=== PATIENT | female | born 1960 | race Caucasian/White ===

== ENCOUNTER 2017-11-02 22:23 | Inpatient (IN) | payer OTHER ==
[~2017-11-02] VITALS: Ht 160 cm; Wt 109.4 kg
[2017-11-03 01:04] LABS: BASOPHIL % 0.5 % (0-2); PLATELET COUNT 238 x10^3mcL (130-400); RED CELL DISTRIBUTION WIDTH 14.2 % (11.5-14.5)
[2017-11-03 01:12] LABS: CALCIUM 9.5 mg/dL (8.5-10.1); CARBON DIOXIDE 27.6 mmol/L (21-32); CHLORIDE SERUM 99 mmol/L (98-107); GFR1 > 60 mL/min; GLUCOSE SERUM 124 mg/dL (74-106); POTASSIUM SERUM 3.8 mmol/L (3.5-5.1); SODIUM SERUM 136 mmol/L (136-145)
[2017-11-03 01:18] LABS: ALBUMIN 3.9 g/dL (3.4-5.0); ALKALINE PHOSPHATASE 72 U/L (46-116); ALT/SGPT 28 U/L (14-59); AST/SGOT 17 U/L (15-37); BILIRUBIN TOTAL 0.34 mg/dL (0.20-1.00); LIPASE 212 IU/L (73-393); TOTAL PROTEIN, SERUM 7.6 g/dL (6.4-8.2)
[2017-11-03 02:03] LABS: microscopic required? NO
[2017-11-03 02:32] LABS: UA SPECIFIC GRAVITY 1.025 (1.005-1.035); urine erythrocyte NEGATIVE (NEGATIVE)
[2017-11-03] MEDS ORDERED: ATORVASTATIN CA40 M1 PO (03:12)
[2017-11-03] MEDS ORDERED: ZESTRIL5 MG PO (03:13)
[2017-11-03] MEDS ORDERED: K10 PO (03:13)
[2017-11-03] MEDS ORDERED: FLOVENT DI100 MCG/A1 INH (03:13)
[2017-11-03] MEDS ORDERED: FUROSEMIDE40 MG PO (03:13)
[2017-11-03] MEDS ORDERED: PANTOPRAZOLE SO40 M1 PO (03:14)
[2017-11-03] MEDS ORDERED: MONTELUKAST SOD10 M1 PO (03:14)
[2017-11-03] MEDS ORDERED: ZOLOFT100 MG PO (03:14)
[2017-11-03] MEDS ORDERED: PRAVACHOL20 MG PO (03:14)
[2017-11-03 03:41] LABS: MAGNESIUM 1.9 mg/dL (1.8-2.4); PHOSPHOROUS 4.1 mg/dL (2.5-4.9)
[2017-11-03 03:50] LABS: FREE T4 0.93 ng/dL (0.76-1.46); FREE THYROXINE INDEX 2.1 ug/dL (1.4-4.5); T3 TOTAL 1.41 ng/mL; T4(THYROXINE) 6.5 ug/dL (4.7-13.3)
[2017-11-03 03:58] LABS: CHOLESTEROL/HDL RATIO 4.7
[2017-11-03 04:13] LABS: AMPHETAMINE QUAL UR NONE DETECTED (See below)
[2017-11-03 04:20] VITALS: BP 98/53
[2017-11-03 04:45] VITALS: BP 98/53
[2017-11-03 11:15] VITALS: BP 99/70
[2017-11-03 11:40] VITALS: BP 124/72
[2017-11-03 18:16] VITALS: BP 116/68
[2017-11-03 20:35] VITALS: BP 102/54
[2017-11-04 05:38] VITALS: BP 96/55
[2017-11-04 07:20] LABS: PLATELET COUNT 222 x10^3mcL (130-400); RED CELL DISTRIBUTION WIDTH 14.3 % (11.5-14.5)
[2017-11-04 07:37] LABS: CALCIUM 9.2 mg/dL (8.5-10.1); CARBON DIOXIDE 26.5 mmol/L (21-32); CREATININE SERUM 1.1 mg/dL (0.6-1.0); PHOSPHOROUS 4.2 mg/dL (2.5-4.9); POTASSIUM SERUM 4.2 mmol/L (3.5-5.1)
[2017-11-04 08:18] VITALS: BP 128/68
[2017-11-04 10:44] LABS: BAND NEUTROPHIL 5 % (0-10); BASOPHIL 0 % (0-2); MONOCYTE 6 % (0-7); PLATELET MORPHOLOGY PLATELETS NORMAL; SEGMENTED NEUTROPHILS 78 % (37-75)
[2017-11-04 12:38] VITALS: BP 105/60
[2017-11-04 17:11] VITALS: BP 111/54
[2017-11-04 20:34] VITALS: BP 108/58
[2017-11-05 05:06] VITALS: BP 108/63
[2017-11-05 06:38] LABS: BASOPHIL % 0.2 % (0-2); PLATELET COUNT 192 x10^3mcL (130-400); RED CELL DISTRIBUTION WIDTH 14.2 % (11.5-14.5)
[2017-11-05 06:59] LABS: CALCIUM 8.2 mg/dL (8.5-10.1); CARBON DIOXIDE 29.4 mmol/L (21-32); CHLORIDE SERUM 102 mmol/L (98-107); GFR1 > 60 mL/min; GLUCOSE SERUM 113 mg/dL (74-106); POTASSIUM SERUM 4.1 mmol/L (3.5-5.1); SODIUM SERUM 138 mmol/L (136-145)
[2017-11-05 09:17] VITALS: BP 116/60
[2017-11-05 13:33] VITALS: BP 111/53
[2017-11-05] MEDS ORDERED: FLA500 PO (13:49)
[2017-11-05] MEDS ORDERED: LEVAQUIN750 MG PO (13:50)
[2017-11-05] MEDS ORDERED: NORCO1 TA2 PO (13:51)
[2017-11-05 16:00] VITALS: BP 111/53
== END 2017-11-05 16:48 | disposition home or self-care (01) | DRG 233 ==
LOC: ED 22:23 → DU 11-03 02:51
PROVIDERS: Emergency Medicine; Family Medicine; Surgery
PROC: 0DTJ4ZZ Resection of Appendix, Percutaneous Endoscopic Approach (ICD-10-PCS; principal; 2017-11-03 08:30)
DX: K35.2 Acute appendicitis with generalized peritonitis (principal); E11.65 Type 2 diabetes mellitus with hyperglycemia; I10 Essential (primary) hypertension; J45.909 Unspecified asthma, uncomplicated; E78.1 Pure hyperglyceridemia; E66.01 Morbid (severe) obesity due to excess calories; F32.9 Major depressive disorder, single episode, unspecified; E78.00 Pure hypercholesterolemia, unspecified; F17.210 Nicotine dependence, cigarettes, uncomplicated; Z68.41 Body mass index [BMI] 40.0-44.9, adult; Z90.49 Acquired absence of other specified parts of digestive tract; Z98.51 Tubal ligation status; Z88.6 Allergy status to analgesic agent
CPT/HCPCS: 83880; 84439; 94150; J1170; J1885; J2250; J2270; J2405; J2543; J2704; J2710; J3010; J3490; J7030; J7040; J7120; J7620; Q0092

== ENCOUNTER 2018-04-22 23:34 | Inpatient (IN) | payer OTHER ==
[~2018-04-22] VITALS: Ht 157.5 cm; Wt 107.3 kg
[~2018-04-22 23:34] MED LIST: ATORVASTATIN CA40 M1 PO; FLA500 PO; FLOVENT DI100 MCG/A1 INH; FUROSEMIDE40 MG PO; K10 PO; LEVAQUIN750 MG PO; MONTELUKAST SOD10 M1 PO; NORCO1 TA2 PO; PANTOPRAZOLE SO40 M1 PO; PRAVACHOL20 MG PO; ZESTRIL5 MG PO; ZOLOFT100 MG PO
--- NOTE | 2018-04-23 00:48 | NUR ---
DR VACA AT BEDSIDE FOR MSE.
--- NOTE | 2018-04-23 00:50 | NUR ---
REC'D A 57/F IN RM 5 WITH C/O PROGRESSIVELY WORSE SOB X 3 DAYS. HX OF CHRONIC ASTHMA. PT DENIES FEVER, COUGH. PT AAOX4, CLEAR SPEECH, RESP E/U, SALAS EXPIRATORY WHEEZE, ON CM.
--- NOTE | 2018-04-23 01:03 | NUR ---
BREATHING TX IN PROGRESS AT BEDSIDE.
--- NOTE | 2018-04-23 01:05 | NUR ---
PRODUCTIVE WHITE PHELGM NOTED DURING BREATHING TX.
--- NOTE | 2018-04-23 01:24 | NUR ---
SPOKE WITH DR VACA RE 2ND EKG ORDER. PER DR MCCLENDON, ONLY ONE EKG IS NEEDED AND IT HAS ALREADY BEEN COMPLETED.
--- NOTE | 2018-04-23 01:24 | NUR ---
REPORT REC'D FROM GREGORIO KNOX FOR ONGOING CARE OF THE PATIENT.
[2018-04-23 01:25] LABS: BASOPHIL % 0.6 % (0-2); PLATELET COUNT 224 x10^3mcL (130-400)
[2018-04-23 01:26] LABS: RED CELL DISTRIBUTION WIDTH 15.1 % (11.5-14.5)
[2018-04-23 01:36] LABS: CALCIUM 8.2 mg/dL (8.5-10.1); CARBON DIOXIDE 25.7 mmol/L (21-32); CREATININE SERUM 1.1 mg/dL (0.6-1.0); POTASSIUM SERUM 3.7 mmol/L (3.5-5.1)
[2018-04-23 01:40] LABS: ALBUMIN 3.5 g/dL (3.4-5.0); BILIRUBIN TOTAL 0.26 mg/dL (0.20-1.00); TOTAL PROTEIN, SERUM 7.2 g/dL (6.4-8.2)
--- NOTE | 2018-04-23 01:55 | NUR ---
PT REPORT RECIEVED TO ASSUME PT CARE. PT RESTING IN A POSITION OF COMFORT, AOX4, RESP EVEN AND UNLABORED, NO ACUTE DISTRESS NOTED AT THIS TIME.
--- NOTE | 2018-04-23 02:12 | NUR ---
RESP THERAPY AT BEDSIDE.
--- NOTE | 2018-04-23 03:18 | NUR ---
PT TRANSFERRED TO [address] BY [facility] BY MYSELF AND CHRISTOPH EMT. PT ON VESSEL SPECIALIST FOR TRANSPORT. PT AOX4, RESP EVEN AND UNLABORED, NO ACUTE DISTRESS NOTED AT THIS TIME. PT AMBULATED FROM [facility] TO BED WITH STEADY GAIT. CHEVY PERKINS ACCEPTED PT AT BEDSIDE HANDOFF.
[2018-04-23 03:58] LABS: MAGNESIUM 1.9 mg/dL (1.8-2.4)
[2018-04-23 04:05] LABS: CHOLESTEROL/HDL RATIO 6.5; T3 TOTAL 1.3 ng/mL
[2018-04-23 04:17] VITALS: BP 127/97
[2018-04-23 04:20] LABS: FREE T4 0.65 ng/dL (0.76-1.46); FREE THYROXINE INDEX 2.1 ug/dL (1.4-4.5); T4(THYROXINE) 6.8 ug/dL (4.7-13.3)
--- NOTE | 2018-04-23 05:14 | NUR ---
PT'S BEDSIDE BLOOD SUGAR, 190 THIS MORNING. PT REFUSED INSULIN SLIDING SCALE COVERAGE STATING SHE IS NO LONGER DIABETIC, JUST PRE DIABETIC. PT ALSO UNERSTANDS THAT HER SUGAR IS HIGH DUE TO STEROID (SOLU MEDROL) RECEIVED IN ER. DR. MARCANO MADE AWARE. PT DENIES ANY PAIN OR DISCOMFORT AT THIS TIME. DENIES SOB OR DYSPNEA. COMFORT AND SAFETY MEASURES MAINTAINED. ALL NEEDS ASSESSED AND ATTENDED TO. CALL LIGHT WITHIN REACH. WILL ENDORSE CARE TO DAY SHIFT NURSE
[2018-04-23 06:14] VITALS: BP 153/79
--- NOTE | 2018-04-23 07:50 | NUR ---
RECIEVED PT FROM CARPENTER REFRIGERATOR NURSE. PT SITTING UP AT BEDSIDE LEANING OVER BEDSIDE TABLE. A/OX4. TELE #30. NSR, HR 91. DENIES ANY CHEST PAIN. PULSES PALP. SLIGHT EDEMA NOTED TO BILAT LE. RESPIRATIONS EQUAL AND LABORED ON RA. PT C/O SOB THAT IMPROVES WITH BREATHING TREATMENTS. ACTIVE BS. DENIES N/V. AMBULATORY WITH BRP. SKIN W/D/I. DENIES ANY PAIN AT THIS TIME. IV SALINE LOCKED TO RT AC. NO SWELLING OR REDNESS NOTED. CALL LIGHT IN REACH. BED IN LOWEST POSITION. WILL CONTINUE TO MONITOR.
--- NOTE | 2018-04-23 08:40 | NUR ---
ENDORSED CARE TO EMAD RN.
[2018-04-23 08:41] VITALS: BP 138/75
--- NOTE | 2018-04-23 09:16 | NUR ---
MEDICATED PER EMAR. PT AWAKE, ALERT, RESPIRATIONS EVEN AND UNLABORED, NO S/S OF DISTRESS NOTED, PATIENT REPORTS SLIGHT SOB. RT CURRENTLY GIVING TREATMENT. IV SITE CDI AND PATENT. BED IN LOWEST POSITION, CALL LIGHT WITHIN REACH, 2 RAILS UP. SAFETY PRECAUTIONS IN PLACE.
--- NOTE | 2018-04-23 11:49 | NUR ---
PT AWAKE, ALERT, CURRENTLY SITTING IN BED, RESPIRATIONS EVEN AND UNLABORED, NO S/S OF DISTRESS NOTED. MEDICATED PER EMAR FOR ELEVATED BLOOD SUGAR AND EDUCATED ON S/S OF HYPOGLYCEMIA WELL NEED TO EAT LUNCH, PATIENT VERBALIZES UNDERSTANDING. FAMILY AT BEDSIDE. SAFETY PRECAUTIONS IN PLACE.
[2018-04-23 12:58] VITALS: BP 150/75
--- NOTE | 2018-04-23 14:29 | NUR ---
PT CURRENTLY SITTING IN BED WATCHING TV, RESPIRATIONS EVEN AND UNLABORED, NO S/S OF DISTRESS NOTED. SAFETY PRECAUTIONS IN PLACE.
[2018-04-23 15:44] VITALS: BP 133/62
--- NOTE | 2018-04-23 16:01 | NUR ---
PT STATES IV FEELS TENDER. IV SITE CDI AND PATENT WITH NO S/S OF INFILTRATION, REDNESS, EDEMA, OR DRAINAGE AND FLUSHES WITHOUT DIFFICULTY WITH 10ML OF NS. OFFERED OPTION OF STARTING IV TO DIFFERENT SITE, PATIENT CURRENTLY REFUSING. PT AWAKE, ALERT, RESPIRATIONS EVEN AND UNLABORED, NO S/S OF DISTRESS NOTED. SAFETY PRECAUTIONS IN PLACE.
--- NOTE | 2018-04-23 19:01 | NUR ---
ENDORSED CARE TO COMPUTER ASSISTANT NURSE, ALL QUESTIONS AND CONCERNS WERE ADDRESSED. PT AWAKE, ALERT, RESPIRATIONS EVEN AND UNLABORED, NO S/S OF DISTRESS NOTED. SAFETY PRECAUTIONS IN PLACE.
--- NOTE | 2018-04-23 19:20 | NUR ---
RECEIVED PT LAYING IN BED, NO ACUTE DISTRESS NOTED. DENIES PAIN OR DISCOMFORT, BREATHING ON RA, EVEN AND UNLABORED, DENIES SOB OR DYSPNEA, O2 SAT 98, MILD EXPIRATORY WHEEZING NOTED, RT PROTOCOL IN PLACE. AA/OX4, ABLE TO MAKE NEEDS KNOWN. NSR TO TELE #30, NO CP. PULSES PRESENT AND EQUAL THROUGHOUT, NO EDEMA NOTED. ABD ROUND AND SOFT WITH ACTIVE BOWEL SOUNDS, DENIES N/V/D. FREELY VOIDS URINE. AMBULATORY AND ABLE TO REPOSITION SELF IN BED. IV TO RAC IN PLACE, DRY, PATENT, INTACT, S/L AT THIS TIME, NO PAIN, REDNESS, OR SWELLING NOTED WHEN FLUSHED WITH NS. COMFORT AND SAFETY MEASURES IN PLACE. ALL NEEDS ASSESSED AND ATTENDED TO. CALL LIGHT WITHIN REACH. WILL CONTINUE TO MONITOR
[2018-04-23 20:48] VITALS: BP 149/74
--- NOTE | 2018-04-23 21:05 | NUR ---
PT REQUESTING TO SHOWER AT THIS TIME. OK PER DOCTOR'S ORDERS. IV SITE WRAPPED, TELE REMOVED. GAIT STRONG AND STEADY. NO DISTRESS NOTED. WILL CONTINUE TO MONITOR
--- NOTE | 2018-04-23 22:05 | NUR ---
PT OUT OF THE SHOWER AND BACK TO BED WITHOUT INCIDENT. NEW IV TO LFA STARTED BY GREGORIO JARA, DRY, PATENT, INTACT WITH GOOD BLOOD RETURN, FLUSHING WELL. PLACED BACK ON TELE. NO ACUTE DISTRESS. CALL LIGHT WITHIN REACH. WILL CONTINUE TO MONITOR
--- NOTE | 2018-04-24 00:49 | NUR ---
PT REQUESTED TO HAVE BLOOD SUGAR CHECKED PRIOR TO GIVING SCHEDULED DOSE OF SOLUMEDROL IVP, BLOOD SUGAR 268. NO ACUTE DISTRESS NOTED, CALL LIGHT WITHIN REACH. WILL CONTINUE TO MONITOR
[2018-04-24 04:56] VITALS: BP 105/56
--- NOTE | 2018-04-24 05:09 | NUR ---
NO SIGNIFICANT CHANGES TO REPORT, PT COMPLIED WITH NURSING CARE THROUGHOUT THE SHIFT WITH NO ACUTE EVENTS OVER NIGHT. PT LAYING IN BED AT THIS TIME, WATCHING TV, BREATHING EVEN AND UNLABORED, NO ACUTE DISTRESS NOTED. COMFORT AND SAFETY MEASURES MAINTAINED. ALL NEEDS ASSESSED AND ATTENDED TO. CALL LIGHT WITHIN REACH. WILL ENDORSE CARE TO DAY SHIFT NURSE
[2018-04-24 06:31] LABS: PLATELET COUNT 239 x10^3mcL (130-400)
[2018-04-24 06:43] LABS: BASOPHIL % 0 % (0-2); RED CELL DISTRIBUTION WIDTH 14.9 % (11.5-14.5)
[2018-04-24 07:14] LABS: CALCIUM 8.7 mg/dL (8.5-10.1); CARBON DIOXIDE 22.5 mmol/L (21-32); CREATININE SERUM 1.1 mg/dL (0.6-1.0); PHOSPHOROUS 2.9 mg/dL (2.5-4.9); POTASSIUM SERUM 3.7 mmol/L (3.5-5.1)
--- NOTE | 2018-04-24 08:00 | NUR ---
RECEIVED PATIENT ALERT AND ORIENTED TIMES FOUR. REQUESTED BLOOD SUGAR AND DID PER PATIENT REQUEST. NOT SURPRISED THAT IS ELEVATED THE PATIENT HAS BEEN ON SOLUMEDROL. SHE JUST WANTED TO SEE. SHE ALSO ASKED FOR INSULIN. ADVISED THAT THERE IS COVERAGE ONLY EVERY SIX HOURS AND WILL NOT BE GIVING AT THIS TIME. PATIENT AHS DIMINISHED BREATHS SOUNDS AND SOME EXPIRATORY WHEEZING IS HEARD TO BOTH UPPER LOBES OF THE LUNGS. PATIENT HAS A DISTENDED BUT SOFT ABDOMEN AND BOWEL SOUNDS ACTIVE. PATIENT HAS EDEMA TO THE LOWER EXTREMITIES OF 1 PLUS AND PATIENT IS AMBUALTORY. VITALS AT THIS TIME ARE AT 98.3, 91, 20, 105/56, 98% ON ROOM AIR. PATIENT HAS LOW BP AND HELD THE LISINOPRIL INDICATED. PATIENT WAS GIVEN THE LASIX ORDERED. PATIENT AHS NOTED BLOOD SUGAR THIS AM AT 233A ND COVERAGE WAS GIVEN. NOTED WBC IS AT 17.5. DENIES PAIN AT THIS TIME AND DENIES ANY ACUTE SOB. WILL CONTINUE TO MONITOR INDICATED.
[2018-04-24 09:13] VITALS: BP 107/59
--- NOTE | 2018-04-24 12:29 | NUR ---
PATIENT SITTING UP IN BED AND BLOOD SUGAR AT THIS TIME AT 249 AND WILL GIVE INSULIN ORDERED. PATIENT DENIES ANY ACUTE DISTRESS AT THIS TIME. WILL CONTINUE TO MONITOR. 7
[2018-04-24 14:15] VITALS: BP 141/60
--- NOTE | 2018-04-24 16:25 | NUR ---
PATIENT HAS NOT HAD ANY COMPLAINTS OF PAIN AND TOLERATED DIET AND FLUIDS. SHE HAS HAD ELEVATION ON HER GLUCOSE AND NOTED DIABETIC WELL ON SOLUMEDROL AT THIS TIME. NO ACUTE RESPIRATORY DISTRESS AT THIS TIME.
[2018-04-24 17:29] VITALS: BP 160/68
--- NOTE | 2018-04-24 19:49 | NUR ---
PT RECIEVED AAO REG RESP NO SOB,PT R/A SAT 97%,V/S STABLE,KEPT CLEAN AND DRY TO TOUCH,HL TO RAC THE SITE PATENT AND INTACT,PT ON TELE MONITOR AND IN NSR NO ECTOPY OR CHEST PAIN AT THIS TIME,KEPT CLEAN AND DRY TO TOUCH AND CALL LIGHT EASY REACHED AND WILL CONTINUE TO MONITOR.
[2018-04-24 21:50] LABS: microscopic required? NO
[2018-04-24 22:03] LABS: UA SPECIFIC GRAVITY 1.015 (1.005-1.035); urine erythrocyte NEGATIVE (NEGATIVE)
[2018-04-24 22:13] VITALS: BP 131/76
[2018-04-25 06:13] VITALS: BP 127/70
--- NOTE | 2018-04-25 06:31 | NUR ---
PT HAD A RESTING NIGHT NO CHANGFE AT THIS TIME WILL CONTINUE TO MONITOR.
[2018-04-25 07:07] LABS: PLATELET COUNT 242 x10^3mcL (130-400)
[2018-04-25 07:30] LABS: CALCIUM 8.6 mg/dL (8.5-10.1); CARBON DIOXIDE 25.5 mmol/L (21-32); CREATININE SERUM 1.1 mg/dL (0.6-1.0); MAGNESIUM 2.2 mg/dL (1.8-2.4); PHOSPHOROUS 3.2 mg/dL (2.5-4.9); POTASSIUM SERUM 4.2 mmol/L (3.5-5.1)
--- NOTE | 2018-04-25 07:45 | NUR ---
RECEIVED PT IN BED. ASSESSED AND DOCUMENTED. DENIES PAIN THIS TIME. NO SOB NOTED. SAFTEY PRECAUTIONS ARE IN PLACE. WILL MONITOR.
[2018-04-25 08:05] LABS: RED CELL DISTRIBUTION WIDTH 15.5 % (11.5-14.5)
--- NOTE | 2018-04-25 08:10 | NUR ---
INFORMED AEROSPACE CONTROL AND WARNING SYSTEMS SHANNON ABOUT PT WBC=20.5 AND BUN=22/CREAT=1.1. NO NEW ORDER RECEIVED THIS TIME.
[2018-04-25 10:05] VITALS: BP 128/66
[2018-04-25 11:43] LABS: BAND NEUTROPHIL 4 % (0-10); BASOPHIL 0 % (0-2); SEGMENTED NEUTROPHILS 93 % (37-75)
[2018-04-25 11:44] LABS: PLATELET MORPHOLOGY PLATELETS DECREASED; rbc morphology (normal/abnorm) ABNORMAL (NORMAL)
[2018-04-25 12:13] VITALS: BP 133/63
[2018-04-25] MEDS ORDERED: PREDNISONE20 MG PO (13:38)
[2018-04-25] MEDS ORDERED: PREDNISONE10 MG PO ×2 (13:38→13:39)
[2018-04-25] MEDS ORDERED: PRE20 PO (13:38)
[2018-04-25] MEDS ORDERED: LEVAQUIN750 MG PO (13:39)
[2018-04-25 14:24] VITALS: BP 133/63
--- NOTE | 2018-04-25 15:45 | NUR ---
DISCHARGE INSTRUCTIONS AND PRECSRIPTIONS GIVEN. PB SIGNED AND SENT WITH PT. IV REMOVED AND DRESSING APPLIED. TELE REMOVED AND RETURNED. PT DENIES ANY PAIN. NO SOB NOTED. PT SAID SHE HAS HER CAR HERE AND SHE IS GOOD TO DRIVE, FEEL GOOD. PT IS STABLE. CYCLE MANAGER OFFERED WHEELCHAIR BUT PT SAID SHE WANTS TO WALK. CYCLE MANAGER WALK WITH PT TO LOBBY. PT DC HOME.
== END 2018-04-25 16:00 | disposition home or self-care (01) | DRG 140 ==
LOC: ED 23:34 → DU 04-23 02:11
PROVIDERS: Emergency Medicine; ADMIT Internal Medicine
DX: J44.1 Chronic obstructive pulmonary disease with (acute) exacerbation (principal); N17.0 Acute kidney failure with tubular necrosis; J96.01 Acute respiratory failure with hypoxia; E11.65 Type 2 diabetes mellitus with hyperglycemia; F33.9 Major depressive disorder, recurrent, unspecified; E78.5 Hyperlipidemia, unspecified; G47.33 Obstructive sleep apnea (adult) (pediatric); F17.210 Nicotine dependence, cigarettes, uncomplicated; D72.829 Elevated white blood cell count, unspecified; I10 Essential (primary) hypertension; E78.00 Pure hypercholesterolemia, unspecified; Z88.5 Allergy status to narcotic agent; Z71.6 Tobacco abuse counseling
CPT/HCPCS: 36600; 82962; 83880; 84439; 87804; J0132; J1644; J1956; J2920; J2930; J7613; J7620; J7626; J7644

== ENCOUNTER 2018-05-20 16:52 | Emergency (ER) | payer OTHER ==
[~2018-05-20] VITALS: Ht 157.5 cm; Wt 103.0 kg
[~2018-05-20 16:52] MED LIST changes: +PRE20 PO; +PREDNISONE10 MG PO; +PREDNISONE20 MG PO
[2018-05-20 16:57] VITALS: Ht 157.5 cm; Wt 103.0 kg
[2018-05-20 20:23] VITALS: BP 116/60
== END 2018-05-20 20:23 | disposition home or self-care (01) ==
LOC: ED 16:52
DX: J44.1 Chronic obstructive pulmonary disease with (acute) exacerbation (principal); J98.01 Acute bronchospasm; F17.210 Nicotine dependence, cigarettes, uncomplicated
CPT/HCPCS: 99406; J0132; J7512; J7613; Q0092

== ENCOUNTER 2019-03-11 00:03 | Emergency (ER) | payer OTHER ==
[~2019-03-11] VITALS: Ht 172.7 cm; Wt 97.1 kg
[2019-03-11 00:12] VITALS: Ht 172.7 cm; Wt 97.1 kg
[2019-03-11 03:54] VITALS: BP 130/54
== END 2019-03-11 03:54 | disposition home or self-care (01) ==
LOC: ED 00:03
DX: J44.1 Chronic obstructive pulmonary disease with (acute) exacerbation (principal); E78.00 Pure hypercholesterolemia, unspecified; F32.9 Major depressive disorder, single episode, unspecified; Z88.6 Allergy status to analgesic agent; Z88.2 Allergy status to sulfonamides
CPT/HCPCS: 82962; 87804; J2930; J7613; J7644

== ENCOUNTER 2019-04-06 05:57 | Emergency (ER) | payer OTHER ==
[~2019-04-06] VITALS: Ht 160 cm; Wt 96.2 kg
[2019-04-06 05:59] VITALS: Ht 160 cm; Wt 96.2 kg
[2019-04-06 08:54] VITALS: BP 157/78
== END 2019-04-06 08:54 | disposition home or self-care (01) ==
LOC: ED 05:57
DX: J45.901 Unspecified asthma with (acute) exacerbation (principal); F17.200 Nicotine dependence, unspecified, uncomplicated; I10 Essential (primary) hypertension; E78.00 Pure hypercholesterolemia, unspecified; F32.9 Major depressive disorder, single episode, unspecified; J45.909 Unspecified asthma, uncomplicated; Z88.5 Allergy status to narcotic agent; Z91.040 Latex allergy status; Z71.6 Tobacco abuse counseling
CPT/HCPCS: 99406; J0132; J7512; J7613; J7644; Q0092